=== PATIENT | female | born 1980 | race Caucasian/White ===

== ENCOUNTER 2018-04-03 10:45 | Outpatient (RCR) | payer BC ==
[~2018-04-03 10:45] MED LIST: AMOXICILLI400 MG/51 PO; ANTIVERT 25MG25 MG PO; BENADRYL25 MG PO; CEFZIL 250250 MG/5 M PO; CEPHALEXIN500 M1 PO; LEVEMIR SQ; LEXAPRO 10MG10 MG PO; PHENERGAN25 MG RC; PRENATAL VITAMI1 TA5 PO; PRILOSEC 20MG20 MG PO; ZOFRAN 4MG T4 MG/TAB PO; ZOFRAN ODT4 MG PO; [UNRECOGNIZED DRUG - OTHER]
== END 2018-04-03 16:00 | disposition home or self-care (01) ==
LOC: WSC 10:45
DX: M54.5 Low back pain (principal)

== ENCOUNTER → 2019-01-06 | Outpatient (CLI) | payer BC | LOC: MC.RAD 13:22 | DX: Z12.31 Encounter for screening mammogram for malignant neoplasm of breast (principal) ==

== ENCOUNTER 2019-09-03 11:00 | Outpatient (RCR) | payer BC | END 2019-11-24 | disposition home or self-care (01) | LOC: WSC | DX: M77.32 Calcaneal spur, left foot (principal) ==

== ENCOUNTER → 2019-11-07 | Outpatient (CLI) | payer BC | LOC: COL.RAD 09:13 | DX: K21.9 Gastro-esophageal reflux disease without esophagitis (principal) ==

== ENCOUNTER → 2020-03-09 | Outpatient (CLI) | payer BC | LOC: MC.RAD 17:27 | DX: Z12.31 Encounter for screening mammogram for malignant neoplasm of breast (principal) ==

== ENCOUNTER → 2021-06-15 | Outpatient (CLI) | payer BC | LOC: MC.RAD 05-16 14:30 | DX: Z12.31 Encounter for screening mammogram for malignant neoplasm of breast (principal) ==

== ENCOUNTER → 2022-07-18 | Outpatient (CLI) | payer BC | LOC: MC.RAD 08:57 | DX: Z12.31 Encounter for screening mammogram for malignant neoplasm of breast (principal) ==

== ENCOUNTER 2023-02-08 15:15 | Emergency (ER) | payer BC ==
[~2023-02-08] VITALS: Ht 167.6 cm; Wt 95.5 kg
[2023-02-08 15:18] VITALS: TEMP 98
[2023-02-08] MEDS ORDERED: ZOFRAN ODT4 MG PO ×3 (16:32→17:11)
[2023-02-08 17:11] VITALS: BP 117/81; PULSE 70
== END 2023-02-08 17:15 | disposition home or self-care (01) ==
LOC: COL.ER 15:15
DX: S06.0X0A Concussion without loss of consciousness, initial encounter (principal); S62.305A Unspecified fracture of fourth metacarpal bone, left hand, initial encounter for closed fracture; S60.511A Abrasion of right hand, initial encounter; S00.81XA Abrasion of other part of head, initial encounter; Z23 Encounter for immunization; W01.198A Fall on same level from slipping, tripping and stumbling with subsequent striking against other object, initial encounter; Y92.480 Sidewalk as the place of occurrence of the external cause

== ENCOUNTER 2023-06-26 15:28 | Outpatient (RCR) | payer BC | END 2023-07-21 | disposition home or self-care (01) | LOC: WSOT | DX: S62.317D Displaced fracture of base of fifth metacarpal bone, left hand, subsequent encounter for fracture with routine healing (principal); S62.395D Other fracture of fourth metacarpal bone, left hand, subsequent encounter for fracture with routine healing ==

== ENCOUNTER → 2024-07-01 | Outpatient (CLI) | payer BC | LOC: COL.RAD 15:41 | DX: M47.816 Spondylosis without myelopathy or radiculopathy, lumbar region (principal); M48.061 Spinal stenosis, lumbar region without neurogenic claudication; M51.36 Other intervertebral disc degeneration, lumbar region; M51.26 Other intervertebral disc displacement, lumbar region ==